=== PATIENT | male | born 1985 | race Caucasian/White ===

== ENCOUNTER 2023-03-30 14:26 | Inpatient (IN) | payer OTHER, SELFPAY ==
[2023-03-30] MEDS ORDERED: Ondansetron PF 4 MG/2 ML Vial ONE (15:26)
[2023-03-30] MEDS ORDERED: methylPREDNISolone Sod Succ/PF 125 MG/2 ML VIAL ONE (15:26)
[2023-03-30] MEDS ORDERED: Ketorolac Tromethamine 30 MG/ML VIAL ONE (15:26)
[2023-03-30 15:48] LABS: #Monocytes 1.1 10x3/uL (0.0-1.1); #Neutrophils 4.5 10x3/uL (1.5-8.4); %Basophils 0.4 % (0.0-2.0); %Eosinophils 0.1 % (0.0-6.0); %Lymphocytes 19.7 % (18.0-47.0); %Monocytes 15.9 % (0.0-10.0); %Neutrophils 63.6 % (40.0-75.0); Hematocrit 40.6 % (38.8-50.0); Hemoglobin 14.7 g/dL (13.5-17.5); Mean Corpuscular HGB CONC 36.2 g/dL (32.0-36.0); Mean Corpuscular Hemoglobin 31.7 pg (27.0-33.0); Mean Corpuscular Volume 87.5 fl (81.2-95.1); Mean Platelet Volume 9.3 fl (7.4-10.4); Platelet Count 192 10x3/uL (150-450); RBC Distribution Width 11.9 % (11.5-14.5); Red Blood Cell (RBC) Count 4.64 10x6/uL (4.32-5.72); White Blood Cell (WBC) Count 7.1 10x3/uL (3.5-10.5)
[2023-03-30 16:04] LABS: ALT (SGPT) 29 U/L (8-55); AST (SGOT) 33 U/L (5-34); Albumin 3.8 g/dL (3.5-5.0); Alkaline Phosphatase 49 U/L (40-110); Anion Gap 22 mmol/L (10-20); BUN (Urea Nitrogen) 25 mg/dL (8.9-20.6); Calc. Creatinine Clearance 0 mL/min (70-130); Calcium 8.7 mg/dL (7.8-10.44); Carbon Dioxide 17 mmol/L (22-29); Chloride 98 mmol/L (98-107); Estimated GFR 18; Globulin 3.2 g/dL (2.4-3.5); Glucose 104 mg/dL (70-105); Potassium 3.3 mmol/L (3.5-5.1); Sodium 134 mmol/L (136-145)
[2023-03-30] MEDS ORDERED: Ondansetron PF 4 MG/2 ML Vial IVP PRN (16:39)
[2023-03-30] MEDS ORDERED: Acetaminophen 325 MG TAB PO PRN (16:39)
[2023-03-30 17:37] LABS: Magnesium 1.9 mg/dL (1.6-2.6); Phosphorus 4.5 mg/dL (2.3-4.7)
[2023-03-30 18:04] LABS: Bilirubin Neg (Negative); Blood, Urine 10 (Negative); Clarity Clear (Clear); Glucose, Urine (Dipstick) Normal (Negative); Ketone, Urine Negative (Negative); Leukocyte Negative (Negative); Nitrite Negative (Negative); Protein, Urine (Dipstick) 30 mg/dl (Neg-Trace); Urobilinogen Normal mg/dL (Less than 2)
[2023-03-30 18:22] LABS: CAUTI Indications for Culture Pelvic or flank pain; RBC/HPF 0-3 HPF (0-3); Squamous Epithelial 0-3 HPF (0-3)
[2023-03-30 18:25] LABS: Bacteria/HPF 1+ HPF (None Seen)
[2023-03-30 18:27] LABS: Urine Culture Reflex No No
[2023-03-30 18:50] VITALS: BMI 34.0
[2023-03-30] MEDS: Sodium Chloride 0.9% 1,000 ML IV SCH (20:34)
[2023-03-30] MEDS: Famotidine/PF 20 mg/2ml Vial SLOW IVP SCH (20:35)
[2023-03-30] MEDS: Heparin 5,000 UNITS/ML VIAL SC SCH (20:35)
[2023-03-30] MEDS: Potassium Chloride 20 MEQ in Premix Bag 1 BAG IVPB SCH ×2 (20:35→22:25)
[2023-03-30 23:07] LABS: Creatinine, Urine 59.4 mg/dL (63-166)
[2023-03-30] MEDS: HYDROcodone/Acetaminophen 5/325 mg Tablet PO PRN (23:38)
[2023-03-31] MEDS: Sodium Chloride 0.9% 1,000 ML IV SCH ×4 (04:49→22:18)
[2023-03-31 04:59] LABS: Anion Gap 17 mmol/L (10-20); BUN (Urea Nitrogen) 23 mg/dL (8.9-20.6); Calc. Creatinine Clearance 40 mL/min (70-130); Calcium 8.3 mg/dL (7.8-10.44); Carbon Dioxide 17 mmol/L (22-29); Chloride 101 mmol/L (98-107); Estimated GFR 21; Glucose 193 mg/dL (70-105); Potassium 4.5 mmol/L (3.5-5.1); Sodium 130 mmol/L (136-145)
[2023-03-31] MEDS: Heparin 5,000 UNITS/ML VIAL SC SCH ×3 (09:00→20:57)
[2023-03-31] MEDS ORDERED: Amlodipine 5 MG TAB PO SCH (10:00)
[2023-03-31] MEDS ORDERED: Promethazine HCl 25 MG in Sodium Chloride 0.9% 50 ML IVPB PRN (14:44)
[2023-03-31] MEDS: HYDROcodone/Acetaminophen 5/325 mg Tablet PO PRN (20:49)
[2023-03-31] MEDS: Famotidine/PF 20 mg/2ml Vial SLOW IVP SCH (20:50)
[2023-03-31 21:00] LABS: SARS-CoV-2 NAA Rapid Test Not Detected (NotDetected)
[2023-03-31] MEDS ORDERED: Zolpidem Tartrate 5 MG TAB PO PRN (22:08)
[2023-04-01 06:17] LABS: ALT (SGPT) 17 U/L (8-55); AST (SGOT) 15 U/L (5-34); Albumin 3.1 g/dL (3.5-5.0); Alkaline Phosphatase 34 U/L (40-110); Anion Gap 12 mmol/L (10-20); BUN (Urea Nitrogen) 19 mg/dL (8.9-20.6); Bilirubin, Direct 0.1 mg/dL (0.1-0.3); Bilirubin, Total 0.4 mg/dL (0.2-1.2); Calc. Creatinine Clearance 68 mL/min (70-130); Calcium 8.2 mg/dL (7.8-10.44); Carbon Dioxide 23 mmol/L (22-29); Chloride 107 mmol/L (98-107); Estimated GFR 39; Glucose 103 mg/dL (70-105); Magnesium 1.8 mg/dL (1.6-2.6); Potassium 4.3 mmol/L (3.5-5.1); Protein, Total 5.5 g/dL (6.0-8.3); Sodium 138 mmol/L (136-145)
[2023-04-01 06:23] LABS: #Monocytes 0.7 10x3/uL (0.0-1.1); #Neutrophils 4.5 10x3/uL (1.5-8.4); %Basophils 0.2 % (0.0-2.0); %Eosinophils 0.2 % (0.0-6.0); %Lymphocytes 19.2 % (18.0-47.0); %Monocytes 10.5 % (0.0-10.0); %Neutrophils 69.4 % (40.0-75.0); Hematocrit 34.3 % (38.8-50.0); Mean Corpuscular Hemoglobin 31.8 pg (27.0-33.0); Platelet Count 150 10x3/uL (150-450); RBC Distribution Width 12.2 % (11.5-14.5); Red Blood Cell (RBC) Count 3.77 10x6/uL (4.32-5.72); White Blood Cell (WBC) Count 6.4 10x3/uL (3.5-10.5)
[2023-04-01] MEDS: Sodium Chloride 0.9% 1,000 ML IV SCH (06:25)
[2023-04-01 08:26] VITALS: TEMP 98.3
[2023-04-01] MEDS: Heparin 5,000 UNITS/ML VIAL SC SCH (08:43)
[2023-04-01] MEDS ORDERED: Amlodipine 5 MG TAB PO SCH (09:00)
[2023-04-01 12:32] VITALS: BP 157/64
[2023-04-01 12:36] LABS: Hemoglobin A1c 4.9 % (4.0-6.0)
[2023-04-02 22:38] LABS: Campy jejuni + coli by PCR Negative (Negative); STEC Shiga Toxin 1+2 Negative (Negative); Salmonella spp. by PCR Negative (Negative); Shigella spp + EIEC by PCR Negative (Negative)
== END 2023-04-01 15:05 | disposition home or self-care (01) | DRG 641 ==
LOC: CSHERS 14:26 → CSHTELE 18:13 → OBSVTOIN 18:14
PROVIDERS: ADMIT Internal Medicine; ATTEND Family Medicine
DX: E86.0 Dehydration (principal); N17.9 Acute kidney failure, unspecified; I10 Essential (primary) hypertension; Z88.0 Allergy status to penicillin; Z88.2 Allergy status to sulfonamides; Z79.899 Other long term (current) drug therapy; Z90.49 Acquired absence of other specified parts of digestive tract; R19.7 Diarrhea, unspecified; F10.10 Alcohol abuse, uncomplicated; E78.00 Pure hypercholesterolemia, unspecified; G40.909 Epilepsy, unspecified, not intractable, without status epilepticus
CPT/HCPCS: 36415; 76770; 80048; 80053; 80076; 81001; 82550; 82570; 83036; 83630; 83735; 84100; 84300; 84443; 85025; 87177; 87324; 87449; 87493; 87505; 93005; 93010; J1644; J1885; J2405; J2930; J3480; J7050; S0028